=== PATIENT | female | born 1985 | race Caucasian/White ===

== ENCOUNTER 2016-09-12 02:35 | Emergency (ER) | payer OTHER ==
[~2016-09-12] VITALS: Ht 154.9 cm; Wt 77.1 kg
[2016-09-12] MEDS ORDERED: Novolog100 U/ML SC (02:55)
[2016-09-12 03:01] LABS: HEMOGLOBIN 13.6 g/dL (12.2-16.2); LYMPH # 2.9 K/mm3 (0.7-4.5); LYMPH % 38.4 % (10-50.0)
[2016-09-12 03:29] LABS: BUN 13 mg/dL (7-18)
[2016-09-12 03:31] LABS: GFR (ESTIMATED) 72 ML/MIN (59-)
--- NOTE | 2016-09-12 04:03 | Emergency Room Report ---
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 SPOUSE THOUGHT SHE WAS HYPOGLYCEMIC AND PULLED INSULIN PUMP AND GAVE MAPLE SYRUP. UPON EMS ARRIVAL ACCUCHECK 67. UPON ARRIVAL TO ED ACCUCHECK 40. PATIENT CONFUSED AND SLOW TO RESPOND. HAS INJURY TO TONGUE FROM BITING. 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 N Clinical Suspician of Infection? N Mental Status: 1 - Regular (Normal Baseline) Sepsis Risk:Possible Sepsis Risk Have you (or family members/close friends) recently traveled outside the [place]? N If Yes, where/when: Have you had exposure to infectious disease within the past month? N TB? Other? Specify: Source patient, RN notes reviewed, family, EMS, old records Exam Limitations no limitations Comment pt with apparent hypoglycemia - she is iddm pt with pump- with sz episode- she reports no illness and has been on her diet with no vomiting Cardiac Chest Pain Chest pain indicative of cardiac No Timing/Duration this evening Severity moderate ALLERGIES Coded Allergies: Penicillins (09/12/16) Home Medications Reported Medications INSULIN ASPART (Novolog) (Unknown Dose) SC CONTINUOSLY History Medical History General CAD? No Angina: No MO: No Hypertension? No Hyperlipidemia? No CHF? No DVT? No PE? No COPD? No Asthma? No Anemia? No GERD? No Gastric ulcers? No GI Bleed? No Hernia? No Thyroid Problems? No Hypothyroidism? No CVA? No Seizures? Yes Diabetes? Yes Insulin Dependent: Yes Insulin Pump: Yes Home FSBS? Yes Renal Insuffiency? No End Stage Renal Disease? No UTI? No Stones? No BPH? No GB Disease: No Nephritic Syndrome? No Asplenia? No Hepatitis? No Sickle Cell Disease? No Arthritis? No Migraines? No Cataracts? No Glaucoma? No MRSA? No HIV? No TB? No Anxiety? No Depression? No Cancer? 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 Respiratory denies cough, denies shortness of breath, denies wheezing Cardiovascular denies chest pain, denies palpitations, denies syncope Gastrointestinal denies abdominal pain, denies diarrhea, denies vomiting Genitourinary denies: dysuria, frequency, hesitancy, hematuria. Musculoskeletal denies back pain, denies joint pain, denies joint swelling, denies neck pain Skin denies rash Psychiatric/Neurological see HPI, denies headache, seizure Physical Exam Vital Signs Vital Signs Date Time Temp Pulse Resp B/P Pulse O2 O2 Flow FiO2 Ox Delivery Rate 09/12 0508 77 20 113/75 97 09/12 0443 86 20 121/74 99 09/12 0410 87 20 116/75 96 09/12 0306 92 20 110/65 98 09/12 0237 98.2 105 20 137/64 99 - WBC >12,000 or <4,000 or 10% bands? 2 or more SIRS Criteria Met? B/P:121/74 MAP:88 Creatinine >2.0? UA output<0.5ml/kg/hr for 2 hrs? Platelet count >100,000? Lactate >2.0mmol/1? INR >1.2 or PTT > than 60 sec? Evidence of Organ Dysfunction? Provider documented clinical suspician of infection? N Sepsis Criteria Count: 2 Sepsis Risk: Possible Sepsis Risk General Appearance no apparent distress Eye Exam - bilateral eye PERRL, bilateral eye EOMI Ear, Nose, Throat normal ENT inspection, tongue biting Neck supple Respiratory Status No: respiratory distress. Lung Sounds bilateral: lungs clear. 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 No Results/Orders Laboratory Tests 09/12/16 0440: Urine Color YELLOW, Urine Appearance CLEAR, Urine pH 6.5, Ur Specific [place] 1.020, Urine Protein NEGATIVE, Urine Ketones NEGATIVE, Urine Blood NEGATIVE, Urine Nitrate NEGATIVE, Urine Bilirubin NEGATIVE, Urine Urobilinogen 0.2, Ur Leukocyte Esterase NEGATIVE, Urine WBC OCC, Urine Glucose 2+ H 09/12/16 0318: POC Glucose 190 H 09/12/16 0252: Sodium 141, Potassium 3.3 L, Chloride 107, Carbon Dioxide 25, BUN 13, Creatinine 0.9, Estimated Creat Clear 108, Estimated GFR (MDRD) 72, Glucose 51 L, Calcium 8.7, Total Bilirubin 0.4, AST 11 L, ALT 21, Alkaline Phosphatase 91, Creatine Kinase 93, CK-MB (CK-2) Rel Index 1.7, CK and CKMB Interp 1.6, Troponin I < 0.02, Total Protein 7.3, Albumin 3.6, Globulin 3.7 H, Albumin/Globulin Ratio 1.0 L, WBC 7.5, RBC 4.77, Hgb 13.6, Hct 41.8, MCV 87.7, RDW 12.9, Plt Count 243, MPV 6.7 L, Gran % 53.2, Gran # 4.0, Lymphocytes % 38.4, Monocytes % 5.6, Eosinophils % 2.2, Basophils % 0.6, Lymphocytes # 2.9, Monocytes # 0.4, Eosinophils # 0.2, Basophils # 0.1, PUBS MCHC 32.6, MCH 28.6 Current Medication Orders Sig/Gina Start time Last Medication Dose Route Stop Time Status Admin Acetaminophen 650 MG ONCE ONE 09/125 DC 09/12 PO 09/126 0412 Acetaminophen 0 .STK-MED ONE 09/12 0411 DC PO Dextrose 50 ML ONCE ONE 09/12 0300 DC 09/12 IVP 09/12 0301 0254 Dextrose/Sodium 1,000 ML .Q10H 09/12 0300 AC 09/12 Chloride IV 09/12 0659 0254 Sodium Chloride 10 ML PRN PRN 09/12 0300 AC IV 09/13 0246 Sodium Chloride 10 ML PRN PRN 09/12 0300 AC IV 09/13 0247 Dextrose 0 .STK-MED ONE 09/12 0242 DC .ROUTE Dextrose/Sodium 1,000 ML .STK-MED ONE 09/12 0241 DC Chloride IV Orders Procedure Date/time Status URINALYSIS/COMPLETE 09/12 0406 Complete URINE 09/12 0406 Active FINGERSTICK BLOOD SUGAR 09/12 0318 Complete IV SALINE LOCK 09/12 0247 Active FSBS REQUEST BY CARE AREA 09/12 0247 Active CBC WITH AUTO DIFF 09/12 024 Complete CARDIAC ENZYMES 09/12 024 Complete CHEM 12 PROFILE 09/12 024 Complete Departure Departure Time of Disposition 0400 Disposition DC Home or Self Care(routine) Clinical Impression Primary Impression: Hypoglycemia due to type 1 diabetes mellitus Condition STABLE Patient Instructions DI for Hypoglycemia Additional Instructions call pcp for follow up Discharge Counseling Counseled pt/family regarding diagnosis, test results, medications/RX, follow up needs ED [place] [address]13
[2016-09-12 04:57] LABS: URINE BILIRUBIN - DIPSTICK NEGATIVE (NEG); URINE BLOOD NEGATIVE (NEG)
[2016-09-12 05:21] VITALS: BP 113/75
== END 2016-09-12 05:25 | disposition home or self-care (01) ==
LOC: ER 02:35
PROVIDERS: Emergency Medicine
DX: E10.649 Type 1 diabetes mellitus with hypoglycemia without coma (principal); Z79.4 Long term (current) use of insulin; Z96.41 Presence of insulin pump (external) (internal); R56.9 Unspecified convulsions